=== PATIENT | female | born 1975 | race Hispanic/Latino ===

== ENCOUNTER 2017-02-09 17:18 | Inpatient (IN) | payer OTHER ==
[2017-02-09 17:45] VITALS: BMI 39.2
[2017-02-09 18:02] VITALS: BP 130/75; PULSE 72; RESP 18; TEMP 98.4; O2SAT 98
[2017-02-09 18:13] LABS: BASO % 0.4 % (0.0-2.0); EOS % 0.4 % (0.0-4.0); HEMATOCRIT 39.8 % (34.0-47.0); LYMPH # 1.4 K/uL (1.0-4.3); LYMPH % 11.5 % (20.0-40.0); MEAN CELL VOLUME 88.1 fl (81.0-99.0); MEAN CORPUSCULAR HEMOGLOBIN 29.1 pg (27.0-31.0); MEAN PLATELET VOLUME 12.3 fl (7.2-11.7); MONO # 0.6 K/uL (0.0-0.8); MONO % 5.3 % (0.0-10.0); NEUT # 10.1 K/uL (1.8-7.0); NEUT % 82.4 % (50.0-75.0); RED CELL DISTRIBUTION WIDTH 14.6 % (11.5-14.5); WHITE BLOOD COUNT 12.2 K/uL (4.8-10.8)
--- NOTE | 2017-02-09 18:27 | OBADHP ---
Datetime: 02/09/2017 18:00 Admit Comment, IP Provider: IUP at 38w 6d c/o occ CTX. She had CTX on and off. She was seen at the office today and noted to be 3-4cm. No VB. No SROM. +FM care Dr JORDAN/PAT at [facility] office starting at 33w; transfer from [place] AMA - no amnio ; obese; Hx LGA; GDMA2 started on Glyburide 2.5mg BID January 26 but pt admits to not sa rting on it until 1w ago. She also ran out of accucheck test strips has not chekced x 1w PMH: obese; GDMA2 PSH: denies POBGYH: x 4 (8lb - 9lb 15oz) NKA A; IUP at 38w6d ealry labor GDMA2 obese grand multparity AMA declined amnio PLAN: Admit to L_D IV access lab work - accucheck (64mg/dl)..willl allow to eat accucheks q 2h starting after dinner DIsucssion about labor, medications incl Pitocin, augmentation (ROM/PITOCIN), pain managment, neisha betes, risk of shoulder dystocia, PPH, neurological consequences, delivery and ...she under stands and will still deliver vaginally. Her questoins answered. Pelvic Type - PN: Adequate Extremities - PN: Normal Abdomen - PN: Normal Back - PN: Normal Breast - PN: Not Done Lungs - PN: Normal Heart - PN: Normal Thyroid - PN: Normal Neurologic - PN: Normal HEENT - PN: Normal General - PN: Normal Presentation-Admit: Vertex FHR - Baseline A Provider: 140 Membranes, Provider: Intact Contraction Comments Provider: occ Comments, ACOG Physical Exam: ROS: General: no fatigue; some dizzinness bc she is hungry HEENT: no DELEON; no visual dist CV: no CP; no palpitaions Resp: no OSb; no cough GI: No N/V/D : No F/U/D MS: no joint pain Pool Provider: Negative IP Hx Assessment: The History has been Reviewed and is Current IP Chief Complaint: Uterine contractions NICHD Variability Prov Fetus A: Moderate 6-25bpm NICHD Accel Fetus A IP Provider: 15X15 FHR Category Provider Fetus A: Category I NICHD Decel Fetus A IP Provider: None Dilatation, Provider: 3-4 Effacement, Provider: 50 Station, Provider: -2 Genitourinary Exam: Normal DTRs - PN: Normal EGA AdmitDate IP: 38.6 IP Adm Impression: Term, intrauterine IP Admit Plan: Admit to unit; Initiate labor protocol
[2017-02-09] MEDS ORDERED: Oxytocin 30 units/LR 500ML 30 U/500 ML BAG IV ONE (18:57)
[2017-02-09] MEDS ORDERED: Lidocaine 1% Inj (20ml) ONE (19:08)
[2017-02-09] MEDS ORDERED: Lactated Ringer's 1,000 ML IV SCH (21:10)
--- NOTE | 2017-02-09 21:19 | OBPN ---
Datetime: 02/09/2017 21:05 IP Progress Impression: Normal progression of labor; Reactive non-stress test IP Informed Consent Obtain: Vaginal Delivery; Risks, Benefits and Alternatives Discussed IP Procedures: Artificial ROM IP Progress Plan: Continue present management; Augmentation Pool Provider: Positive Membranes, Provider: Ruptured Amniotic Fluid Color, Provider: Clear Contraction Comments Provider: 4-6m FHR - Baseline A Provider: 140 Presentation-Admit: Vertex IP Progress Note Comment: Notified that she was walking around and had a variable decel noted. She went to the restroom and feels more CTX pain. A: IUP 38 latent phase of labor PLAN: AROM scant clear fluid/blood show noted with mucous. montior progress discussed augmentation wth Pitocin...will observbe progress Vital Signs Provider: Reviewed; Within Normal Limits NICHD Accel Fetus A IP Provider: 15X15 FHR Category Provider Fetus A: Category I NICHD Variability Prov Fetus A: Moderate 6-25bpm Dilatation, Provider: 4-5 Effacement, Provider: 90 Station, Provider: -2 NICHD Decel Fetus A IP Provider: Variable
[2017-02-09] MEDS ORDERED: Oxytocin 30 units/LR 500ML 30 U/500 ML BAG IV SCH (21:46)
--- NOTE | 2017-02-09 22:13 | OBPN ---
Datetime: 02/09/2017 22:00 IP Progress Impression: Reactive non-stress test IP Informed Consent Obtain: Vaginal Delivery; Risks, Benefits and Alternatives Discussed IP Procedures: Intrauterine Pressure Catheter; Amnio Infusion IP Progress Plan: Continue present management Pool Provider: Positive Membranes, Provider: Ruptured Contraction Comments Provider: 3min FHR - Baseline A Provider: 140 Presentation-Admit: Vertex IP Progress Note Comment: Notified that she was 5-6cm earlier...Pitocin was ordered/cancelled - not started....decels to 50-60's noted x 2...)2 IVF openb wide x 2 liters... Active phase of labor variable decels noted...IUPC placed;start amnioinfusion...observe progress NICHD Accel Fetus A IP Provider: 15X15 FHR Category Provider Fetus A: Category II NICHD Variability Prov Fetus A: Moderate 6-25bpm Dilatation, Provider: 7-8 Effacement, Provider: 100 Station, Provider: -1 NICHD Decel Fetus A IP Provider: Variable
[2017-02-09] MEDS ORDERED: Sodium Chloride 0.9% 1,000 ML IV SCH ×2 (22:15→23:53)
[2017-02-09] MEDS ORDERED: Oxycodone/Acetaminophen 5/325 mg Tab PO PRN (22:44)
[2017-02-10] MEDS: Oxycodone/Acetaminophen 5/325 mg Tab PO PRN ×2 (05:19→21:28)
[2017-02-10 07:11] LABS: BASO # 0.1 K/uL (0.0-0.2); BASO % 0.4 % (0.0-2.0); EOS % 0.2 % (0.0-4.0); HEMATOCRIT 33.5 % (34.0-47.0); LYMPH # 1.4 K/uL (1.0-4.3); LYMPH % 9.4 % (20.0-40.0); MEAN CELL VOLUME 88.8 fl (81.0-99.0); MEAN CORPUSCULAR HEMOGLOBIN 29.7 pg (27.0-31.0); MEAN CORPUSCULAR HGB CONC 33.4 g/dL (33.0-37.0); MEAN PLATELET VOLUME 12.3 fl (7.2-11.7); MONO # 0.8 K/uL (0.0-0.8); MONO % 5.7 % (0.0-10.0); NEUT # 12.4 K/uL (1.8-7.0); NEUT % 84.3 % (50.0-75.0); PLATELET COUNT 129 K/uL (130-400); RED CELL DISTRIBUTION WIDTH 14.3 % (11.5-14.5); WHITE BLOOD COUNT 14.7 K/uL (4.8-10.8)
--- NOTE | 2017-02-10 07:27 | OBDS ---
DELIVERY PERSONNEL Delivery Doctor: Messi Lemus DO Boat Driver: Danisha Ma RN MATERNAL INFORMATION Delivery Anesthesia: None Medications in Delivery: pitocin Estimated Blood Loss (ml): 200 Placenta Cultured: No Maternal Complications: None Provider Comments: Over intact perinuem, of live 9,9. was crying spontaneo usly and bulb suctioned. Delayed cord clamp and skin to skin. Placenta delivered intact spontaneous ly. EBL 200cc LABOR SUMMARY EDC: 02/17/2017 00:00 No. Babies in Womb: 1 Attempted: No Labor Anesthesia: None LABOR INFORMATION Onset of Labor: 02/09/2017 21:44 Complete Dilatation: 02/09/2017 22:25 Oxytocin: N/A Group B Beta Strep: Negative Antibiotics # of Doses: none Steroids Given: None Reason Steroids Not Administered: Not Applicable MEMBRANES Membranes Rupture Method: Artificial Rupture of Membranes: 02/09/2017 21:06 Length of Rupture (hrs): 1.48 Amniotic Fluid Color: Clear Amniotic Fluid Amount: Scant Amniotic Fluid Odor: Normal STAGES OF LABOR Stage 1 hrs: 0 Stage 1 min: 41 Stage 2 hrs: 0 Stage 2 min: 10 Stage 3 hrs: 0 Stage 3 min: 8 Total Time in Labor hrs: 0 Total Time in Labor min: 59 VAGINAL DELIVERY Episiotomy: None Laceration Extension: N/A Laceration Type: None Initial Vag Sponge Count: 5 Final Vag Sponge Count: 5 Initial Vag Sharps Count: 0 Final Vag Sharps Count: 0 Sponge Count Correct: Yes; Vaginal Sweep Performed Sharps Count Correct: N/A Count Comment: 5 lap pads CSECTION DELIVERY Primary Indication: N/A Secondary Indication: N/A CSection Urgency: N/A CSection Incidence: N/A Labor: N/A Elective: N/A CSection Incision: N/A BABY A INFORMATION Delivery Date/Time: 02/09/2017 22:35 Method of Delivery: Vaginal Born in Route : No : N/A Forceps: N/A Vacuum Extraction: N/A Shoulder Dystocia : No SHOULDER DYSTOCIA BABY A Infant Delivery Date/Time: 02/09/2017 22:35 PRESENTATION/POSITION BABY A Presentation: Cephalic Cephalic Presentation: Vertex Vertex Position: Left Occipital Anterior Breech Presentation: N/A PLACENTA INFORMATION BABY A Placenta Delivery Time : 02/09/2017 22:43 Placenta Method of Delivery: Spontaneous Placenta Status: Delivered SCORES BABY A Heart Rate 1 min: >100 bpm Resp Effort 1 min: Good Cry Reflex Irritability 1 min: Cough or Sneeze or Pulls Away Muscle Tone 1 min: Active Motion Color 1 min: Body [place], Extremities Blue Resuscitation Effort 1 min: N/A SCORE 1 MIN: 9 Heart Rate 5 min: >100 bpm Resp Effort 5 min: Good Cry Reflex Irritability 5 min: Cough or Sneeze or Pulls Away Muscle Tone 5 min: Active Motion Color 5 min: Body [place], Extremities Blue Resuscitation Effort 5 min: N/A SCORE 5 MIN: 9 INFORMATION BABY A Gestational Age at Delivery: 38.6 Gestational Status: Term Infant Outcome : Liveborn Condition : Stable Sex: Male IDENTIFICATION/MEDS BABY A ID Band Number: [id number] ID Band Location: Left Leg; Left Arm WEIGHT/LENGTH BABY A Infant Birthweight (gms): 3100 Weight (lb): 6 Weight (oz): 13 CORD INFORMATION BABY A No. Cord Vessels: 3 Nuchal Cord : N/A Cord Blood Taken: Yes Suction: Mouth; Nose ASSESSMENT BABY A Complications: None Physical Findings at Delivery: Within Normal Limits Respirations: Appears Normal Art Educator/ALS Called : No Infant Care By: Nurys Urias RN Transferred To: Remains with Mother
--- NOTE | 2017-02-10 07:28 | OBDS ---
DELIVERY PERSONNEL Delivery Doctor: Messi Lemus DO Champagne Maker: Danisha Ma RN MATERNAL INFORMATION Delivery Anesthesia: None Medications in Delivery: pitocin Estimated Blood Loss (ml): 200 Placenta Cultured: No Maternal Complications: None Provider Comments: Over intact perinuem, of live 9,9. was crying spontaneo usly and bulb suctioned. Delayed cord clamp and skin to skin. Placenta delivered intact spontaneous ly. EBL 200cc LABOR SUMMARY EDC: 02/17/2017 00:00 No. Babies in Womb: 1 Attempted: No Labor Anesthesia: None LABOR INFORMATION Onset of Labor: 02/09/2017 21:44 Complete Dilatation: 02/09/2017 22:25 Oxytocin: N/A Group B Beta Strep: Negative Antibiotics # of Doses: none Steroids Given: None Reason Steroids Not Administered: Not Applicable MEMBRANES Membranes Rupture Method: Artificial Rupture of Membranes: 02/09/2017 21:06 Length of Rupture (hrs): 1.48 Amniotic Fluid Color: Clear Amniotic Fluid Amount: Scant Amniotic Fluid Odor: Normal STAGES OF LABOR Stage 1 hrs: 0 Stage 1 min: 41 Stage 2 hrs: 0 Stage 2 min: 10 Stage 3 hrs: 0 Stage 3 min: 8 Total Time in Labor hrs: 0 Total Time in Labor min: 59 VAGINAL DELIVERY Episiotomy: None Laceration Extension: N/A Laceration Type: None Initial Vag Sponge Count: 5 Final Vag Sponge Count: 5 Initial Vag Sharps Count: 0 Final Vag Sharps Count: 0 Sponge Count Correct: Yes; Vaginal Sweep Performed Sharps Count Correct: N/A Count Comment: 5 lap pads CSECTION DELIVERY Primary Indication: N/A Secondary Indication: N/A CSection Urgency: N/A CSection Incidence: N/A Labor: N/A Elective: N/A CSection Incision: N/A BABY A INFORMATION Delivery Date/Time: 02/09/2017 22:35 Method of Delivery: Vaginal Method of Delivery: Vaginal Method of Delivery: Vaginal Method of Delivery: Vaginal Born in Route : No : N/A Forceps: N/A Vacuum Extraction: N/A Shoulder Dystocia : No SHOULDER DYSTOCIA BABY A Delivery Date/Time: 02/09/2017 22:35 PRESENTATION/POSITION BABY A Presentation: Cephalic Presentation: Cephalic Cephalic Presentation: Vertex Vertex Position: Left Occipital Anterior Breech Presentation: N/A PLACENTA INFORMATION BABY A Placenta Delivery Time : 02/09/2017 22:43 Placenta Method of Delivery: Spontaneous Placenta Status: Delivered SCORES BABY A Heart Rate 1 min: >100 bpm Resp Effort 1 min: Good Cry Reflex Irritability 1 min: Cough or Sneeze or Pulls Away Muscle Tone 1 min: Active Motion Color 1 min: Body [place], Extremities Blue Resuscitation Effort 1 min: N/A SCORE 1 MIN: 9 Heart Rate 5 min: >100 bpm Resp Effort 5 min: Good Cry Reflex Irritability 5 min: Cough or Sneeze or Pulls Away Muscle Tone 5 min: Active Motion Color 5 min: Body [place], Extremities Blue Resuscitation Effort 5 min: N/A SCORE 5 MIN: 9 INFANT INFORMATION BABY A Gestational Age at Delivery: 38.6 Gestational Status: Term Infant Outcome : Liveborn Infant Condition : Stable Infant Sex: Male Infant Sex: Male IDENTIFICATION/MEDS BABY A ID Band Number: [id number] ID Band Location: Left Leg; Left Arm WEIGHT/LENGTH BABY A Infant Birthweight (gms): 3100 Weight (lb): 6 Infant Weight (oz): 13 CORD INFORMATION BABY A No. Cord Vessels: 3 Nuchal Cord : N/A Cord Blood Taken: Yes Suction: Mouth; Nose ASSESSMENT BABY A Infant Complications: None Physical Findings at Delivery: Within Normal Limits Respirations: Appears Normal Senior Actuarial Analyst/ALS Called : No Care By: Nurys Urias RN Transferred To: Remains with Mother
--- NOTE | 2017-02-10 11:22 | OBPPN ---
Datetime: 02/10/2017 11:18 PP Pain Prov: Within normal limits PP Nausea Prov: Denies PP Flatus Prov: Yes PP Breasts Prov: Not Done PP Heart Prov: Normal PP Lungs Prov: Normal PP Abdomen/Uterus Prov: Normal PP Lochia Prov: Not Done PP Vulva/Perineum Prov: Not Done PP CVA Tenderness Prov: Normal PP Extremities Prov: Normal PP Impression Prov: Normal progression PP Plan Prov: Continue present management PP Progress Note Prov: Patient doing well and no complaints reports minimal lochia voiding without d ifficulty tolerating diet Vital signs stable afebrile Uterus firm below the umbilicus Extremities no Homans day #1 Ambulation, analgesia, anticipate discharge in a.m. Vital Signs Provider PP: Reviewed
[2017-02-10 11:58] LABS: NEUTROPHIL 83 % (42-75); REACTIVE LYMPHOCYTES 2 % (0-0); TOTAL CELLS COUNTED 100
[2017-02-10 12:29] LABS: LARGE PLATELETS PRESENT
[2017-02-10 12:30] LABS: GIANT PLATELETS PRESENT
[2017-02-10] MEDS ORDERED: Lansinoh for Breast Feeding Mothers TP ONE (22:22)
--- NOTE | 2017-02-11 09:34 | OBDCSUM ---
Datetime: 02/11/2017 09:32 Discharged to, Provider: Home Follow up at, Provider: Dr. Navarrete Disch Instr Activity: Normal activity; May Shower Disch Instr Diet: Regular Discharge Instructions, Provider: Routine instructions given Discharge Diagnosis, Provider: Term Delivered Discharge Time: 02/11/2017 09:32 Follow up in weeks, Provider: 6 weeks Contraception discussed, Prov: No Disch Activity Restrictions: No exercising; No lifting; No sexual activity; Nothing in vagina - Inte rcourse, tampons, douche
--- NOTE | 2017-02-11 09:34 | OBPPN ---
Datetime: 02/11/2017 09:30 PP Pain Prov: Within normal limits PP Abdomen/Uterus Prov: Normal PP Lochia Prov: Normal PP Extremities Prov: Normal PP Progress Prov: Normal PP Impression Prov: Normal progression PP Plan Prov: Discharge PP Progress Note Prov: PPD 2 s/p , doing well, breast feeding Pt reports that motrin didn't help her cramps yesterday Rx's tylenol #3 and motrin given Discharge home Vital Signs Provider PP: Reviewed; Within Normal Limits
== END 2017-02-11 12:30 | disposition home or self-care (01) | DRG 372 ==
LOC: H.EROB2 17:18 → H.L&D 17:45 → H.OB/GYN 02-10 00:15
PROVIDERS: ADMIT Obstetrics & Gynecology; ATTEND Obstetrics & Gynecology
PROC: 10E0XZZ Delivery of Products of Conception, External Approach (ICD-10-PCS; principal; 2017-02-09)
PROC: 4A1HXCZ Monitoring of Products of Conception, Cardiac Rate, External Approach (ICD-10-PCS; 2017-02-09)
DX: O76 Abnormality in fetal heart rate and rhythm complicating labor and delivery (principal); O24.429 Gestational diabetes mellitus in childbirth, unspecified control; E66.9 Obesity, unspecified; O09.523 Supervision of elderly multigravida, third trimester; Z3A.38 38 weeks gestation of pregnancy; Z37.0 Single live birth; O99.214 Obesity complicating childbirth

== ENCOUNTER 2017-04-14 10:06 | Day surgery (SDC) | payer OTHER ==
[2017-04-14 10:37] VITALS: RESP 18
[2017-04-14 10:39] VITALS: BMI 35.6
[2017-04-14] MEDS ORDERED: Propofol 10 mg/ml Inj (20 ML) ONE (10:39)
[2017-04-14] MEDS ORDERED: ePHEDrine 50 mg/ml Inj ONE (10:40)
[2017-04-14] MEDS ORDERED: Midazolam 2 MG/2 ML VIAL ONE (10:40)
[2017-04-14] MEDS ORDERED: Succinylcholine 200 mg/10 ml Inj IV ONE (10:40)
[2017-04-14] MEDS ORDERED: Rocuronium 10 mg/ml (5 ml) ONE (10:40)
[2017-04-14] MEDS ORDERED: Phenylephrine 10 mg/ml Inj ONE (10:51)
[2017-04-14] MEDS ORDERED: Albuterol HFA 90 mcg/actuation (8 g) ONE (11:54)
[2017-04-14] MEDS ORDERED: Lactated Ringer's 1,000 ML IV ONE (12:15)
[2017-04-14] MEDS ORDERED: Dexamethasone 4 mg/1 ml ONE (12:32)
[2017-04-14] MEDS ORDERED: Bupivacaine 0.5% Inj(30mL) ONE (12:40)
[2017-04-14] MEDS ORDERED: Neostigmine Methylsulfate 3mg/3ml Syringe IV ONE (12:50)
[2017-04-14] MEDS ORDERED: HYDROmorphone 0.5 mg/0.5 ml ISec IVP PRN (13:11)
[2017-04-14] MEDS ORDERED: Dexamethasone 4 mg/1 ml IVP PRN (13:11)
[2017-04-14] MEDS ORDERED: Oxycodone/Acetaminophen 5/325 mg Tab PO PRN (14:28)
[2017-04-14 16:52] VITALS: BP 140/71; PULSE 58; TEMP 97.2; O2SAT 98
--- NOTE | 2017-04-15 00:17 | OP ---
PROCEDURE DATE: 04/14/2017 PREOPERATIVE DIAGNOSIS: Voluntary sterilization. POSTOPERATIVE DIAGNOSIS: Voluntary sterilization. OPERATION PERFORMED: Laparoscopic tubal ligation with LigaSure device. SURGEON: Dr. Layne Mattson. TYPE OF ANESTHESIA: General. ANESTHESIA ADMINISTERED BY: ESTIMATED BLOOD LOSS: Minimal. Arzate catheter putout approximately 100 mL of clear urine. The patient received 700 mL of D5LR intraoperatively. OPERATIVE FINDINGS: Were normal uterus, tubes, and ovaries. Normal external female genitalia and urethra. COMMENTS: The patient had 5 previous normal spontaneous vaginal deliveries. We discussed risks, benefits and alternatives to sterilization and after thorough discussion, the patient opted for voluntary sterilization. Declined all of the methods including vasectomy for her partner. DESCRIPTION OF PROCEDURE: After informed consent was obtained, the patient was taken to the operating room where she was given general anesthesia. She was then prepped and draped in usual sterile fashion. The patient was placed in [place] stirrups. Attention was then turned to the vagina and cervix. Weighted speculum was inserted into the vagina and the cervix was visualized and grasped with a single-toothed tenaculum. The cervix was gently dilated and HUMI uterine manipulator was inserted to the uterine cavity to manipulate the uterus. A Arzate catheter was inserted into the bladder and monitor the patient's urinary output. Attention was then turned to the umbilical fold and 5 mL of Marcaine was infused. A 5 mm incision was made. A Veress needle was introduced into the abdominal cavity. Placement was confirmed with fluid-filled syringe. The abdomen was then insufflated 15 mmHg. Veress needle was removed and a 5 mm port was introduced into the abdominal cavity and placement was confirmed with laparoscope. Attention was then turned to the left lower quadrant, approximately 3 cm superior to left anterior iliac crest, 5 mL of Marcaine was infused. A 5 mm incision was made and a 5 mm port was introduced into the abdominal cavity. The abdomen was surveyed with findings noted above. Attention was then turned to the left fallopian tube, it was serially coagulated with LigaSure device, then transected. Attention was then turned to the right fallopian tube which in similar fashion was serially coagulated and transected. Tissues were taken for documentation. Hemostasis was noted. All instruments were removed from the abdomen and the patient's skin incisions were closed with Dermabond. All sponge, lap, needle, and instrument counts were correct x2 and the patient was taken to the recovery room in awake and stable condition. Layne Mattson MD
== END 2017-04-14 17:15 | disposition home or self-care (01) ==
LOC: H.OPSURG 10:06
PROVIDERS: ATTEND Obstetrics & Gynecology Gynecology
DX: Z30.2 Encounter for sterilization (principal); J45.909 Unspecified asthma, uncomplicated